=== PATIENT | male | born 1965 | race Caucasian/White ===

== ENCOUNTER 2016-11-30 17:26 | Emergency (ER) | payer BC ==
[2016-11-30 17:34] VITALS: BP 147/99
--- NOTE | 2016-12-06 18:12 | EDM.PDOC ---
ED HPI ENT - General Stated Complaint: NOSE BLEED & VOMITING BLOOD Time Seen by Provider: 11/30/16 17:30 Source: Reports: Patient History Limitations: Reports: No limitations - History of Present Illness INITIAL COMMENTS - FREE TEXT/NARRATIVE: Patient recently had Rhino rockets placed in b/l nostrils for a continuous nose bleed in clinic. Right rocket has come out [address] and patient is having gagging spells. No bleeding at this time. Patient's complaint is that he is unable to stop gagging and throwing up. Timing/Duration: Reports: Minutes: Severity: mild Improves with: Reports: None Worsens with: Reports: None Associated symptoms: Reports: nausea/vomiting - Related Data Allergies/ADRs: Allergies Allergy/AdvReac Type Severity Reaction Status Date / Time No Known Allergies Allergy Verified 11/30/16 19:13 Home Meds: Home Meds Allopurinol [Allopurinol] 300 tab PO DAILY 11/30/16 [History] Aspirin 325 tab PO DAILY 11/30/16 [History] ED ROS ENT - Review of Systems Review Of Systems: ROS reveals no pertinent complaints other than HPI. ED EXAM, ENT - Physical Exam Exam: See Below Exam Limited By: No limitations General Appearance: alert, WD/WN, mild distress Eye Exam: bilateral eye: EOMI, PERRL Ears: normal external exam Nose: dried blood, other (rhino rocket fully in left nostril and right rhino rocket has been dislodged. ) Mouth/Throat: Normal inspection, Normal gums Head: atraumatic, normocephalic Neck: normal inspection, supple Respiratory/Chest: no respiratory distress, lungs clear Cardiovascular: normal peripheral pulses, regular rate, rhythm Course - Vital Signs Last Recorded V/S: Last Vital Signs Temp 37.2 C 11/30/16 17:32 Pulse 80 11/30/16 17:32 Resp 18 11/30/16 17:32 BP 147/99 H 11/30/16 17:32 Pulse Ox 99 11/30/16 17:32 Departure - Departure Time of Disposition: 17:55 Disposition: Home, Self-Care 01 Condition: good Clinical Impression: Nausea Instructions: Nosebleed Referrals: Estiven Patino MD [Primary Care Provider] - Additional Instructions: Rest, humidity, avoid coughing and sneezing, leave rhino rocket in for 72 hours. Allow time to heal.
== END 2016-11-30 17:54 | disposition home or self-care (01) ==
LOC: LB.ED 17:26
DX: R11.2 Nausea with vomiting, unspecified (principal); Z79.899 Other long term (current) drug therapy; Z79.82 Long term (current) use of aspirin; Z98.890 Other specified postprocedural states
CPT/HCPCS: 99283

== ENCOUNTER 2018-01-15 17:12 | Emergency (ER) | payer BC ==
--- NOTE | 2018-01-16 10:25 | ER ---
DATE OF SERVICE: 01/15/2018 HISTORY OF PRESENT ILLNESS: A 52-year-old male here with complaints of a nosebleed from the left naris that has been ongoing for about 2 hours. The patient denies any injury to this area recently. He states he was at work when the nose started to bleed. He does have history of nosebleeds. He has been holding pressure to the area and he thinks it has gotten better recently. The patient has been seen previously on numerous occasions for epistaxis and has had cauterization of the left naris once in the past. OBJECTIVE: GENERAL APPEARANCE: The patient is awake and alert, in no obvious distress. VITAL SIGNS: Reviewed. Blood pressure 115/91. He is afebrile. Pulse is 76. Examining the patient today reveals some clotted blood involving the right naris as well as to a lesser degree the left naris. There is no active bleeding at this time. Closer evaluation reveals multiple irritated areas in the anterior aspect of the Kiesselbach's plexus region. The patient is not swallowing blood at this time as well. DIAGNOSIS: Epistaxis of left naris, currently controlled. TREATMENT PLAN: I will pack the patient's left naris using Vaseline gauze. I applied 2 different packets of the gauze, each packet is 1 inch x 8 inches in size. I was able to get 2 packs into the left naris. The patient tolerated this fairly well. He is to keep this in for 48 hours and then follow up in the clinic to have the packing removed. We monitored the patient for about 15 minutes after packing and he was not swallowing any blood and there was no bleeding through the anterior aspect of the packing. I removed a small clot from the right naris and there is no active bleeding or abnormality noted here. The patient states he usually just has bleeding issues involving the left naris. The patient has no further questions and agrees with the treatment plan. CRS/MODL /[id number] KARISSA
== END 2018-01-15 17:58 | disposition home or self-care (01) ==
LOC: LB.ED 17:12
DX: R04.0 Epistaxis (principal)
CPT/HCPCS: 30901; 99283-25

== ENCOUNTER 2018-04-12 13:21 | Emergency (ER) | payer BC ==
[2018-04-12] MEDS ORDERED: Ondansetron 4 MG Tab.DIS PO ONE (13:41)
[2018-04-12] MEDS ORDERED: Ondansetron 4 MG Tab.DIS ONE (13:42)
[2018-04-12] MEDS ORDERED: Sodium Chloride 0.9% 1,000 ML IV ONE (13:42)
--- NOTE | 2018-04-22 23:34 | ER ---
HPI: A 52-year-old male here with complaints of feeling shaky and nauseated. He did vomit once, onset started today. He is not having any pain. He tells me he does not feel sick. The patient has been doing a lot of physical activity outside. 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 OBJECTIVE: GENERAL APPEARANCE: The patient is awake and alert. No obvious respiratory distress. His hands are slightly trembly when he holds them all in front of him. This is symmetrical. VITAL SIGNS: Reviewed. Blood pressure of 144/92, pulse is 84. Physical exam, eyes, pupils equal, round, and reactive to light. EOMs are intact. Ears, TMs are normal. Oral, mucous membranes are slightly dry. Tonsils are not enlarged or injected. NECK: Supple. LUNGS: Clear. CARDIAC: Heart sounds distinct. S1, S2 present. Regular rate. SKIN: Warm and dry. INITIAL TREATMENT PLAN: 4 mg was given sublingually. An IV was started and the patient was given a liter of IV fluid normal saline. LABS: Include a CBC and CMP. The patient's liver enzymes are slightly elevated. Otherwise, lab results are unremarkable. DIAGNOSES: 1. Heat exhaustion with mild dehydration. 2. Elevated liver enzymes. TREATMENT PLAN: The patient is to increase his liquid intake, and I advised that he uses Gatorade part of the time to get some electrolytes replacement. He is to take it easy the rest of the day and resume activity tomorrow as tolerated. I do want the patient to follow up next week to recheck his lab work. CRS/MODL /[id number]
== END 2018-04-12 15:00 | disposition home or self-care (01) ==
LOC: LB.ED 13:21
DX: T67.5XXA Heat exhaustion, unspecified, initial encounter (principal); E86.0 Dehydration; R74.8 Abnormal levels of other serum enzymes; X30.XXXA Exposure to excessive natural heat, initial encounter
CPT/HCPCS: 36415; 80053; 85025; 99284; A9270; J7030